=== PATIENT | female | born 1970 | race Caucasian/White ===

== ENCOUNTER 2021-05-06 14:02 | Emergency (ER) | payer BC, OTHER ==
[2021-05-06] MEDS ORDERED: Boostrix 0.5 ML (Tdap) VIAL ONE (14:33)
[2021-05-06] MEDS ORDERED: Bacitracin 1 PK ONE (14:40)
== END 2021-05-06 16:48 | disposition home or self-care (01) ==
LOC: NAV ERS 14:02
DX: S81.851A Open bite, right lower leg, initial encounter (principal); W55.01XA Bitten by cat, initial encounter
CPT/HCPCS: 90471; 90715